=== PATIENT | female | born 1980 | race Caucasian/White ===

== ENCOUNTER → 2021-03-09 12:03 | Outpatient (CLI) | payer OTHER, SELFPAY ==
[2021-03-09 16:09] LABS: Progesterone, Total 5.15 ng/mL
[2021-03-16 06:48] LABS: Percent Free Testosterone 2.76 % (0.50-2.80); Testosterone Total 21.9 ng/dL (.)
[2021-03-17 00:07] LABS: Estrogen 175 pg/mL (.)
== END ==
PROVIDERS: PCP Registered Nurse; Referring Provider Registered Nurse; Visit Provider Registered Nurse
DX: R45.86 Emotional lability (principal); Z87.42 Personal history of other diseases of the female genital tract
CPT/HCPCS: 36415; 82672; 84144; 84402; 84403

== ENCOUNTER 2021-11-24 21:17 | Emergency (ER) | payer OTHER, SELFPAY ==
[2021-11-24 21:28] VITALS: BP 142/83; PULSE 77; RESP 17; TEMP 36.3; O2SAT 99; BMI 28.8
--- NOTE | 2021-11-24 21:40 | DI.RAD.S_ITS ---
PROCEDURE: XR CHEST 1V INDICATIONS: chest pain TECHNIQUE: One view of the chest was acquired. COMPARISON: None. FINDINGS: Surgical changes and devices: None. Lungs and pleura: Lungs are clear. No pleural effusions or pneumothorax. Mediastinum: Mediastinal contours appear normal. Heart size is normal. Bones and chest wall: No suspicious bony lesions. Overlying soft tissues appear unremarkable. IMPRESSION: Normal for age, source of current chest pain symptoms is not seen. Dictated by: Abrahan Castle M.D. on 11/24/2021 at 22:19 Approved by: Abrahan Castle M.D. on 11/24/2021 at 22:19
[2021-11-24 21:59] VITALS: PULSE 76; O2SAT 99
[2021-11-24 22:00] VITALS: PULSE 73; O2SAT 99
[2021-11-24 22:02] VITALS: BP 157/96; PULSE 70; RESP 18; O2SAT 99
--- NOTE | 2021-11-24 22:05 | ED.CHESTPAIN ---
HPI - Chest Pain General Chief Complaint: Chest Pain Stated Complaint: Left shoulder and arm pain to left hand and finger Time Seen by Provider: 11/24/21 21:45 Source: patient Mode of arrival: Ambulatory Limitations: no limitations History of Present Illness HPI narrative: 41-year-old female here for evaluation of left shoulder pain and left neck pain left arm pain and tingling down to the little and ring finger. He stated that the symptoms started within the past 24 hours. Yesterday she did work out but she says feels like this is different than her normal post workout discomfort. She is also having some discomfort in her left armpit. Not tremendously worse with palpation or movement. No shortness of breath. No skin rashes. Related Data Home Medications Medication Instructions Recorded Confirmed Migrelief PO 09/10/21 09/10/21 cholecalciferol (vitamin D3) 1,250 1,250 mcg PO QWEEK 09/10/21 09/10/21 mcg (50,000 unit) tablet estradiol 2 mg tablet 1 mg PO .COMPLEX tab 09/10/21 progesterone micronized 100 mg 100 mg PO QAM 09/10/21 09/10/21 capsule rimegepant 75 mg disintegrating 75 mg PO ONCE PRN 09/10/21 09/10/21 tablet (Nurtec ODT) Previous Rx's Medication Instructions Recorded hydroxyzine HCl 10 mg tablet 10 mg PO BEDTIME PRN #30 tab 09/10/21 Allergies Allergy/AdvReac Type Severity Reaction Status Date / Time muscle relaxers AdvReac Severe Nausea, Uncoded 09/10/21 09:50 vomiting, fatigue, weak chest muscles. Review of Systems Constitutional Constitutional: Reports system reviewed and no additional complaints, except as documented Cardiovascular Cardiovascular: Reports system reviewed and no additional complaints, except as documented Respiratory Respiratory: Reports system reviewed and no additional complaints, except as documented Gastrointestinal Gastrointestinal: Reports system reviewed and no additional complaints, except as documented Musculoskeletal Musculoskeletal: Reports system reviewed and no additional complaints, except as documented Integumentary/Breasts Skin/Breast: Reports system reviewed and no additional complaints, except as documented Neurologic Neurologic: Reports system reviewed and no additional complaints, except as documented Hematologic/Lymphatic On Anticoagulants: No Patient History Medical History Anxiety and depression Mood changes Surgical History Status post myringotomy with insertion of tube Social History Smoking Status: Former smoker Smoking Status: Former smoker alcohol intake frequency: 0-2 drinks per day Substance Use Type: does not use Exam Initial Vital Signs Initial Vital Signs: Vital Signs Temperature 97.3 F L 11/24/21 21:28 Pulse Rate 77 11/24/21 21:28 Respiratory Rate 17 11/24/21 21:28 Blood Pressure 142/83 H 11/24/21 21:28 Pulse Oximetry 99 11/24/21 21:28 HENMT Head: normal to inspection and normocephalic Chest Other: No masses felt left adnexa Resp Effort & Inspection: normal respiratory effort Auscultation: clear to auscultation bilaterally Cardio Rate: regular rate Rhythm: regular rhythm GI Inspection: normal to inspection Skin General: no rashes or lesions noted Neuro Sensory Exam: no sensory deficits noted Extrem Other: No specific areas under tender to palpation of the left upper extremity. Full range of motion left wrist left elbow left shoulder. Spurling test negative. Course Orders Ordered: ED Orders 11/24/21 21:40 XR chest 1V Stat EKG-12 Lead Stat 11/24/21 21:57 Complete Blood Count AUTO DIFF Stat Comprehensive Metabolic Panel Stat Lipase Stat Magnesium Stat Troponin & CK Cardiac Panel Stat Vital Signs Vital signs: Vital Signs - 8 hr 11/24/21 21:28 11/24/21 21:59 11/24/21 22:00 Temperature 97.3 F L Pulse Rate 77 76 73 Respiratory Rate 17 Blood Pressure 142/83 H Pulse Oximetry 99 99 99 11/24/21 22:02 11/24/21 22:30 Temperature Pulse Rate 70 67 Respiratory Rate 18 15 Blood Pressure 157/96 H 125/62 Pulse Oximetry 99 98 MDM - Chest Pain Lab Data Attestation: I reviewed the patient's lab results. Result diagrams: 11/24/21 21:57 11/24/21 21:57 Labs: Lab Results 11/24/21 11/24/21 Range/Units 21:57 21:57 WBC 5.5 (4.5-11.0) X10^3/uL RBC 4.54 (4.0-5.2) X10^6/uL Hgb 14.0 (12.0-16.0) g/dL Hct 39.7 (36-46) % MCV 87.4 (80-100) fL MCH 30.8 (26-34) PG MCHC 35.2 (30-36) % RDW 12.7 (11.6-14.8) % Plt Count 235 (150-400) X10^3/uL Neut % (Auto) 49.8 L (50-75) % Lymph % (Auto) 37.5 (25-40) % Reynolds % (Auto) 9.4 (3-14) % Eos % (Auto) 2.9 (2-4) % Baso % (Auto) 0.4 (0-2) % Neut # (Auto) 2700 (2623-2669) /uL Lymph # (Auto) 2000 (7847-3908) /uL Reynolds # (Auto) 500 (0-900) /uL Eos # (Auto) 200 (0-450) /uL Baso # (Auto) 0 (0-100) /uL Sodium 140 (137-145) mmol/L Potassium 3.9 (3.4-5.1) mmol/L Chloride 107 (98-107) mmol/L Carbon Dioxide 24 (22-32) mmol/L BUN 15 (7-17) mg/dL Creatinine 1.05 H (0.52-1.04) mg/dL Estimated GFR > 60 (>60) mL/min BUN/Creatinine Ratio 14.3 (6-22) Glucose 101 H (70-100) mg/dL Calcium 8.9 (8.4-10.2) mg/dL Magnesium 2.2 (1.6-2.3) mg/dL Total Bilirubin 0.4 (0.2-1.3) mg/dL AST 19 (14-36) IU/L ALT 9 (<35) IU/L Alkaline Phosphatase 49 (38-126) U/L Total Creatine Kinase 60 (30-135) U/L CK-MB (CK-2) TNP CK-MB (CK-2) Rel Index TNP Troponin I < 0.012 (0.01-0.034) ng/mL Total Protein 7.7 (6.3-8.2) g/dL Albumin 4.5 (3.5-5.0) g/dL Globulin 3.2 (1.7-4.1) g/dL Albumin/Globulin Ratio 1.4 (1.0-2.8) Lipase 113 (23-300) U/L Imaging Data Chest x-ray: Radiologist's Impression: [address] [address] XRay Report Signed Patient: Austen Walsh MR#: [id number] : 1980 Acct:[id number] Age/Sex: 41 / F Date of Service: 11/24/21 Loc: ED Accession Number: [id number] ?? Procedure: XR chest 1V Ordering Provider: Osvaldo Ibarra D.O. PROCEDURE:? XR CHEST 1V ? INDICATIONS:? chest pain ? TECHNIQUE:? One view of the chest was acquired.? ? COMPARISON:? None. ? FINDINGS:? ? Surgical changes and devices:? None.? ? Lungs and pleura:? Lungs are clear.? No pleural effusions or pneumothorax.? ? Mediastinum:? Mediastinal contours appear normal.? Heart size is normal.? ? Bones and chest wall:? No suspicious bony lesions.? Overlying soft tissues appear unremarkable.? ? IMPRESSION:? Normal for age, source of current chest pain symptoms is not seen. ? ? Dictated by: Abrahan Castle M.D. on 11/24/2021 at 22:19 ? ? Approved by: Abrahan Castle M.D. on 11/24/2021 at 22:19?? ECG Data Attestation: I personally reviewed and interpreted this ECG as follows: Interpretation: Sinus rhythm Ventricular rate is 67 Normal axis Normal QRS Normal QTC No ST T wave changes MDM Narrative Medical decision making narrative: Low suspicion for cardiopulmonary etiology based her presentation today. Given the fact that it is in her left shoulder and neck and then the symptoms she described in her left hand I feel that this is most likely a neurologic issue palpably from inflammation. I did discuss this with the patient. Did discuss the use of anti-inflammatories. Patient can be safely discharged home to continue workup as an outpatient. She was given return precautions. She expressed understanding and agreement. Discharge Plan Departure Patient Disposition: Home Clinical Impression: Atypical chest pain Instructions: DI for Atypical Chest Pain Activity Restrictions/Additional Instructions: Continue to take all of your medications as directed. I do recommend Tylenol and/or ibuprofen to see if this does not help the discomfort that you are having. Return to the emergency department for any new or worsening symptoms. Prescriptions: No Action Migrelief PO 0RF Nurtec ODT 75 mg tablet,disintegrating 75 mg PO ONCE PRN0RF Rx Instructions: as a single dose progesterone micronized 100 mg capsule 100 mg PO QAM 0RF Rx Instructions: off 7 days; repeat cycle cholecalciferol (vitamin D3) 1,250 mcg (50,000 unit) tablet 1,250 mcg PO QWEEK 0RF estradiol 2 mg tablet 1 mg PO .COMPLEX 0RF Rx Instructions: 1 mg PO; hydroxyzine HCl 10 mg tablet 10 mg PO BEDTIME PRN (Reason: anxiety, insomnia) Qty: 30 2RF Referrals: Olivia Jj ARNP [Primary Care Provider] -
[2021-11-24 22:09] LABS: Add Manual Diff / Slide Review NO; Basophils Absolute Auto 0 /uL (0-100); Basophils Percent Auto 0.4 % (0-2); Eosinophils Absolute Auto 200 /uL (0-450); Eosinophils Percent Auto 2.9 % (2-4); Hematocrit 39.7 % (36-46); Lymphocytes Absolute Auto 2000 /uL (1100-4500); Lymphocytes Percent Auto 37.5 % (25-40); Mean Corpuscular HGB Conc 35.2 % (30-36); Mean Corpuscular Hemoglobin 30.8 PG (26-34); Mean Corpuscular Volume 87.4 fL (80-100); Monocytes Absolute Auto 500 /uL (0-900); Monocytes Percent Auto 9.4 % (3-14); Neutrophils Absolute Auto 2700 /uL (1500-7000); Neutrophils Percent Auto 49.8 % (50-75); Platelet Count 235 X10^3/uL (150-400); Red Blood Cell Count 4.54 X10^6/uL (4.0-5.2); Red Cell Distribution Width 12.7 % (11.6-14.8); White Blood Cell Count 5.5 X10^3/uL (4.5-11.0)
[2021-11-24 22:17] LABS: Alanine Aminotransferase 9 IU/L (<35); Albumin 4.5 g/dL (3.5-5.0); Albumin Globulin Ratio 1.4 (1.0-2.8); Alkaline Phosphatase 49 U/L (38-126); Aspartate Aminotransferase 19 IU/L (14-36); BUN Creatinine Ratio 14.3 (6-22); Bilirubin Total 0.4 mg/dL (0.2-1.3); Blood Urea Nitrogen 15 mg/dL (7-17); Calcium 8.9 mg/dL (8.4-10.2); Carbon Dioxide 24 mmol/L (22-32); Chloride 107 mmol/L (98-107); Creatine Kinase 60 U/L (30-135); Estimated Glomerular Filt Rate > 60 mL/min (>60); Globulin 3.2 g/dL (1.7-4.1); Glucose 101 mg/dL (70-100); HEMOLYSIS < 15 (0-50); Lipase 113 U/L (23-300); Magnesium 2.2 mg/dL (1.6-2.3); Potassium 3.9 mmol/L (3.4-5.1); Sodium 140 mmol/L (137-145); Total Protein 7.7 g/dL (6.3-8.2)
[2021-11-24 22:29] LABS: Troponin I < 0.012 ng/mL (0.01-0.034)
[2021-11-24 22:30] VITALS: BP 125/62; PULSE 67; RESP 15; O2SAT 98
== END 2021-11-24 23:10 | disposition home or self-care (01) ==
PROVIDERS: Emergency Provider Emergency Medicine; PCP Registered Nurse
DX: R07.89 Other chest pain (principal); Z87.891 Personal history of nicotine dependence
CPT/HCPCS: 36415; 71045; 80053; 82550; 83690; 83735; 84484; 85025; 93005; 99284

== ENCOUNTER → 2022-05-29 11:49 | Outpatient (CLI) | payer OTHER, SELFPAY ==
--- NOTE | 2022-05-29 11:50 | DI.RAD.S_ITS ---
PROCEDURE: XR KNEE LT 3V INDICATIONS: Left knee pain TECHNIQUE: 3 views of the knee were acquired. COMPARISON: None. FINDINGS: Bones: No fractures or dislocations. No suspicious bony lesions. Tricompartmental degenerative changes of the left knee. Soft tissues: Small joint effusion. No suspicious soft tissue calcifications. IMPRESSION: Tricompartmental osteoarthrosis of the left knee with small joint effusion. No acute fracture or dislocation. Dictated by: David Mesisna M.D. on 05/29/2022 at 20:34 Approved by: David Messina M.D. on 05/29/2022 at 20:41
--- NOTE | 2022-05-29 11:50 | DI.RAD.S_ITS ---
PROCEDURE: XR KNEE RT 3V INDICATIONS: Rigth knee pain TECHNIQUE: 3 views of the knee were acquired. COMPARISON: None. FINDINGS: Bones: No fractures or dislocations. No suspicious bony lesions. Tricompartmental degenerative changes. Soft tissues: No joint effusion. No suspicious soft tissue calcifications. IMPRESSION: Right knee without acute fracture or dislocation. Tricompartmental osteoarthrosis. Dictated by: David Messina M.D. on 05/29/2022 at 20:33 Approved by: David Messina M.D. on 05/29/2022 at 20:34
--- NOTE | 2022-05-29 11:50 | DI.RAD.S_ITS ---
PROCEDURE: XR PELVIS 1-2V INDICATIONS: Right hip pain TECHNIQUE: Single view(s) of the pelvis acquired. COMPARISON: None. FINDINGS: Bones: No fractures or dislocations. No suspicious bony lesions. Soft tissues: Visualized bowel gas pattern is normal. No suspicious soft tissue calcifications. IMPRESSION: Normal pelvis. Dictated by: Mayra Brandon M.D. on 05/29/2022 at 15:08 Approved by: Mayra Brandon M.D. on 05/29/2022 at 15:09
== END ==
PROVIDERS: PCP Family Medicine; Referring Provider Family Medicine; Visit Provider Family Medicine
DX: M25.551 Pain in right hip (principal); M25.561 Pain in right knee; M25.562 Pain in left knee; M17.0 Bilateral primary osteoarthritis of knee
CPT/HCPCS: 72170; 73562

== ENCOUNTER → 2024-02-17 16:27 | Outpatient (CLI) | payer OTHER, SELFPAY ==
--- NOTE | 2024-02-17 16:29 | DI.US.S_ITS ---
PROCEDURE: US RENAL COMPLETE INDICATIONS: Family history of malignant neoplasm of kidney TECHNIQUE: Real-time scanning was performed of the kidneys and bladder, with image documentation. COMPARISON: None. FINDINGS: Kidneys: Kidneys are normal in size. Right kidney measures 9.9 cm long; left kidney measures 10.4 cm long. Right renal cortical thickness is 1.3 cm; left renal cortical thickness is 1.6 cm. Renal cortical echotexture is normal. No hydronephrosis or nephrolithiasis. No suspicious solid mass lesions. Bladder: Pre-void bladder volume is 541 mL. Post-void residual is 25 mL. Pre-void images demonstrate no intraluminal masses or stones. On pre-void images, bilateral ureteral jets are noted with color Doppler interrogation. (Of note, ureteral jets may not be detectable in up to 25% of cases due to insufficient differences in specific gravity between ureteral and bladder urine). Miscellaneous: No free pelvic fluid. IMPRESSION: Unremarkable ultrasound examination of bilateral kidneys and urinary bladder. Small postvoid residual. Dictated by: Jhon Jacobs M.D. on 02/17/2024 at 18:01 Approved by: Jhon Jacobs M.D. on 02/17/2024 at 18:02
== END ==
PROVIDERS: PCP Nurse Practitioner Family; Referring Provider Nurse Practitioner Family; Visit Provider Nurse Practitioner Family
DX: R82.89 Other abnormal findings on cytological and histological examination of urine (principal); Z80.51 Family history of malignant neoplasm of kidney
CPT/HCPCS: 76770

== ENCOUNTER → 2024-07-15 10:59 | Outpatient (CLI) | payer OTHER, SELFPAY ==
[2024-07-15 13:03] LABS: Rheumatoid Factor < 8.6 IU/mL (<12.0)
[2024-07-15 13:31] LABS: TSH w/ Reflex to FT4 1.88 uIU/mL (0.47-4.68)
[2024-07-15 14:55] LABS: Vitamin D 25 Hydroxy (D3) 58.3 ng/mL (30.0-100.0)
[2024-07-20 14:12] LABS: ANA Screen, IFA Negative (.)
== END ==
PROVIDERS: PCP Family Medicine; Referring Provider Family Medicine; Visit Provider Family Medicine
DX: R73.03 Prediabetes (principal); F33.1 Major depressive disorder, recurrent, moderate; G43.909 Migraine, unspecified, not intractable, without status migrainosus; F41.9 Anxiety disorder, unspecified; R52 Pain, unspecified; R53.83 Other fatigue; Z76.89 Persons encountering health services in other specified circumstances; Z79.890 Hormone replacement therapy
CPT/HCPCS: 36415; 82306; 84443; 86038; 86140; 86430

== ENCOUNTER → 2024-07-19 11:36 | Outpatient (CLI) | payer OTHER, SELFPAY ==
[2024-07-19 12:49] LABS: Hemoglobin A1C% w Est Avg Glu 4.6 % (4.0-6.0)
[2024-07-20 03:08] LABS: CRP, High Sensitivity 1.15 mg/L (0.00-3.00)
== END ==
LOC: LAB 11:37
PROVIDERS: PCP Family Medicine; Referring Provider Family Medicine; Visit Provider Family Medicine
DX: R73.03 Prediabetes (principal)
CPT/HCPCS: 36415; 83036; 86140

== ENCOUNTER → 2024-09-29 08:43 | Outpatient (CLI) | payer OTHER, SELFPAY ==
--- NOTE | 2024-09-29 08:44 | DI.NM.S_ITS ---
PROCEDURE: NM JIM PERF SPECT R&S PHARM Rest and pharmacological stress myocardial perfusion SPECT with gated imaging and ejection fraction RADIOPHARMACEUTICAL: 12.2 mCi Tc-99m tetrafosmin IV at rest and 24.5 mCi Tc-99m tetrafosmin IV at peak effect of pharmacological stress. [id number] was performed. INDICATIONS: intermittent chest pain PQRS ATTESTATIONS: Measure 322 - Is this imaging test primarily performed on a low-risk surgery patient for preoperative evaluation within 30 days preceding their low-risk non-cardiac surgery? Low-risk surgery is defined as cardiac or myocardial infarction less than 1%, including (but not limited to) endoscopic procedures, superficial procedures, cataract surgery, and excisional breast surgery: Answer: No Measure 323 - Is this imaging test performed primarily for the monitoring of an asymptomatic patient who had percutaneous coronary intervention on the visit date or within 2 years of the visit date? Answer: No Measure 324 - Is this imaging test performed primarily for the initial detection and risk assessment on an asymptomatic, low coronary heart disease patient? Low CHD risk definition = clinicians should consider the maximum number of available patient factors used to estimate risk based on [place] (ATP III criteria), typically age, gender, diabetes, smoking status, and use of blood pressure medication, and integrate age appropriate estimates for missing elements, such as LDL or standard blood pressure. Answer: No TECHNIQUE: Radiopharmaceutical was injected at peak stress test, and also at rest. SPECT images were obtained. SPECT myocardial perfusion images were displayed in short axis, horizontal long axis, and vertical long axis views. Gated images were reviewed using ozukeQUANT software. COMPARISON: None. CARDIAC STRESS: A pharmacologic stress test was performed under the supervision of an attending staff, using an infusion of 0.4 mg of Lexiscan. Hemodynamic data: There is normal blood pressure and heart rate response to pharmacologic stress. Symptoms: The patient denied anginal chest pain. Aminophylline: No EKG: No diagnostic changes of ischemia; no ectopy. FINDINGS: Raw data: There is good myocardial uptake of radiotracer. No significant motion artifacts. Rfvt-xy-nudxy ratio is 0.34 (normal is less than 0.38 for tetrafosmin tracer). Left ventricle function: Gated images demonstrate normal left ventricular wall thickening. No segmental wall motion abnormalities. No transient ischemic dilation; TID is 1.05 (normal less than 1.3). Left ventricle resting end diastolic volume is 104 mL. Left ventricle stress ejection fraction is 74; normal range is above 45%. Myocardial perfusion: Resting images demonstrated an area of slight hypoperfusion in the apical segment. Stress images had improvement of the perfusion defect in the apical segment. Prone images demonstrated no perfusion defects. IMPRESSION: 1. Negative Lexiscan myocardial perfusion scan for ischemia and infarction. Dictated by: Sal Jacobs M.D. on 09/29/2024 at 16:56 Approved by: Sal Jacobs M.D. on 09/29/2024 at 16:57
== END ==
PROVIDERS: PCP Family Medicine; Referring Provider Family Medicine; Visit Provider Family Medicine
DX: R07.9 Chest pain, unspecified (principal)
CPT/HCPCS: 78452; 93017; A9502; J2785

== ENCOUNTER 2024-10-22 18:24 | Emergency (ER) | payer OTHER, SELFPAY ==
[2024-10-22 18:27] VITALS: BP 138/100; PULSE 81; RESP 20; TEMP 36.6; O2SAT 100
[2024-10-22 19:09] LABS: Add Manual Diff / Slide Review NO; Basophils Absolute Auto 0 /uL (0-100); Basophils Percent Auto 0.5 % (0-2); Eosinophils Absolute Auto 200 /uL (0-450); Eosinophils Percent Auto 3.2 % (2-4); Hematocrit 43.1 % (36-46); Hemoglobin 14.8 g/dL (12.0-16.0); Lymphocytes Absolute Auto 2000 /uL (1100-4500); Lymphocytes Percent Auto 37.8 % (25-40); Mean Corpuscular HGB Conc 34.4 % (30-36); Mean Corpuscular Hemoglobin 30.9 PG (26-34); Mean Corpuscular Volume 89.8 fL (80-100); Monocytes Absolute Auto 400 /uL (0-900); Monocytes Percent Auto 7.9 % (3-14); Neutrophils Absolute Auto 2700 /uL (1500-7000); Neutrophils Percent Auto 50.6 % (50-75); Platelet Count 275 X10^3/uL (150-400); Red Cell Distribution Width 13.5 % (11.6-14.8); White Blood Cell Count 5.4 X10^3/uL (4.5-11.0)
[2024-10-22 19:23] LABS: Alanine Aminotransferase 55 IU/L (<35); Albumin 4.9 g/dL (3.5-5.0); Albumin Globulin Ratio 1.4 (1.0-2.8); Alkaline Phosphatase 79 U/L (38-126); Aspartate Aminotransferase 46 IU/L (14-36); BUN Creatinine Ratio 11.7 (6-22); Bilirubin Total 0.5 mg/dL (0.2-1.3); Blood Urea Nitrogen 14 mg/dL (7-17); Calcium 9.7 mg/dL (8.4-10.2); Carbon Dioxide 27 mmol/L (22-32); Chloride 102 mmol/L (98-107); Estimated Glomerular Filt Rate 57 mL/min (>60); Globulin 3.4 g/dL (1.7-4.1); Glucose 103 mg/dL (70-100); HEMOLYSIS < 15 (0-50); Potassium 4.4 mmol/L (3.4-5.1); Sodium 140 mmol/L (137-145); Total Protein 8.3 g/dL (6.3-8.2)
[2024-10-22 19:27] LABS: C-Reactive Protein Quant < 0.5 mg/dL (<1.0)
[2024-10-22 19:39] LABS: Erythrocyte Sedimentation Rate 8 MM/HR (0-20)
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
[2024-10-22 23:12] VITALS: BP 130/88; PULSE 84; RESP 16; O2SAT 100
== END 2024-10-22 23:13 | disposition home or self-care (01) ==
PROVIDERS: Emergency Provider Emergency Medicine; PCP Family Medicine
DX: G50.1 Atypical facial pain (principal)
CPT/HCPCS: 80053; 85025; 85651; 86140; 99281; 99283

== ENCOUNTER → 2024-12-09 11:45 | Outpatient (CLI) | payer OTHER, SELFPAY ==
--- NOTE | 2024-12-09 11:46 | DI.US.S_ITS ---
PROCEDURE: US THYROID INDICATIONS: ELEVATED THYROID ANTIBODIES TECHNIQUE: Real-time scanning was performed of the thyroid gland, with image documentation. COMPARISON: None. FINDINGS: Thyroid: Diffuse heterogeneous echogenicity of the thyroid bilaterally with multiple areas of increased color Doppler vascular flow. Right lobe measures 5.5 x 1.6 x 1.5 cm. Left lobe measures 4.5 x 1.6 x 1.6 cm. Isthmus is 0.3 cm thick. Nodule number: 1 Location: Left thyroid lobe mid Size: 1.5 x 0.9 x 0.6 cm. Composition: Solid Echogenicity: Hypoechoic Shape: wider than tall. Margins: Smooth Echogenic foci: Comet tail artifact Total points: 4 ACR TI-RADS category: TI-RADS 4: 4-6 points. * FNA if 1.5 cm or larger, follow up if 1 cm or larger (at 1, 2, 3, and 5 years). Nodule number: 2 Location: Left thyroid lobe inferiorly Size: 1.6 x 0.9 x 0.8 cm. Composition: Solid Echogenicity: Hypoechoic Shape: wider than tall. Margins: Smooth Echogenic foci: None Total points: 4 ACR TI-RADS category: TI-RADS 4: 4-6 points. * FNA if 1.5 cm or larger, follow up if 1 cm or larger (at 1, 2, 3, and 5 years). IMPRESSION: Diffuse heterogeneous echogenicity of the thyroid may be related to goiter although with increased color Doppler flow, Howie's thyroiditis or other process could be considered. Left thyroid nodules as discussed above which by size criteria could be fine needle aspirated. Continued follow-up suggested ACR TI-RADS definitions and recommendations: TI-RADS 1 (benign): 0 points. FNA not needed. TI-RADS 2 (not suspicious): 2 points. FNA not needed. TI-RADS 3: 3 points. * FNA if 2.5 cm or larger, follow up if 1.5 cm or larger (at 1, 3, and 5 years). TI-RADS 4: 4-6 points. * FNA if 1.5 cm or larger, follow up if 1 cm or larger (at 1, 2, 3, and 5 years). TI-RADS 5: 7 points or more. * FNA if 1 cm or larger, follow up if 0.5 cm or larger (every year for 5 years). Dictated by: Ernie Dickerson M.D. on 12/09/2024 at 21:10 Approved by: Ernie Dickerson M.D. on 12/09/2024 at 21:16
== END ==
LOC: US 11:45
PROVIDERS: PCP Family Medicine; Referring Provider Family Medicine; Visit Provider Family Medicine
DX: E04.2 Nontoxic multinodular goiter (principal); R76.8 Other specified abnormal immunological findings in serum
CPT/HCPCS: 76536